=== PATIENT | female | born 1960 | race American Indian/Alaskan Native ===

== ENCOUNTER 2021-03-16 07:51 | Inpatient (IN) | payer MEDICAID ==
[2021-03-16] MEDS ORDERED: IBUPROFEN 800 MG TAB PO ONE ×2 (08:13→14:00)
--- NOTE | 2021-03-16 08:13 | Event Note ---
ED Screening Note Date of service: 03/16/21 ED Screening Note: PUI CO COUGH, WEAKNESS, FEVER/CHILLS LOW SATS on arrival O2 placed This initial assessment/diagnostic orders/clinical plan/treatment(s) is/are subject to change based on patients health status, clinical progression and re- assessment by fellow clinical providers in the ED. Further treatment and workup at subsequent clinical providers discretion. Patient/guardian urged not to elope from the ED as their condition may be serious if not clinically assessed and managed. Initial orders include: xray labs to main- charge nurse aware of sats 85 on arrival on room air
[2021-03-16 09:21] LABS: Basophils % (Auto) 0.4 % (0.0-1.8); Lymphocytes # (Auto) 1.6 K/mm3 (1.2-5.4); Lymphocytes % (Auto) 26.4 % (13.4-35.0); Mean Corpuscular HGB Conc 35 % (30-34); Mean Corpuscular Volume 89 fl (79-97); Monocytes # (Auto) 0.3 K/mm3 (0.0-0.8); Monocytes % (Auto) 5.9 % (0.0-7.3); Platelet Count 142 K/mm3 (140-440); Red Blood Count 4.83 M/mm3 (3.65-5.03)
--- NOTE | 2021-03-16 09:23 | XRay Report ---
CHEST 1 VIEW 03/16/2021 8:10 AM INDICATION / CLINICAL INFORMATION: Dyspnea. COMPARISON: None available. FINDINGS: SUPPORT DEVICES: None. HEART / MEDIASTINUM: The heart size and pulmonary vasculature are normal. LUNGS / PLEURA: There are patchy faint interstitial parenchymal opacities in the periphery of both damaso ngs. More focal ill-defined parenchymal opacity is present in the right mid-upper lung peripherally. No pleural effusion or adenopathy. No pneumothorax. ADDITIONAL FINDINGS: There are benign-appearing cystic changes in the greater tuberosity of the left humerus. IMPRESSION: Patchy peripheral parenchymal opacities in both lungs, right greater than left. The findi ngs are nonspecific, but likely inflammatory. Atypical causes of pneumonia, including viral pneumonia , should be considered. Short-term radiographic follow-up after appropriate therapy is recommended to document resolution. Signer Name: Ruben Blanca MD Signed: 03/16/2021 9:19 AM Workstation Name: [id number]
[2021-03-16 09:46] LABS: Alanine Aminotransferase 21 units/L (7-56); Albumin 3.5 g/dL (3.9-5); Blood Urea Nitrogen 9 mg/dL (7-17); Calcium 8.5 mg/dL (8.4-10.2); Hemolysis Index 14
[2021-03-16 09:49] LABS: BUN/Creatinine Ratio 15
[2021-03-16] MEDS ORDERED: AZITHROMYCIN/NS 500 MG/250 ML 500 MG/250 ML BAG IV ONE ×2 (10:30→14:00)
[2021-03-16] MEDS ORDERED: dexAMETHasone 4 MG/ML VIAL IV ONE ×2 (10:30→14:00)
[2021-03-16] MEDS ORDERED: cefTRIAXone/NS 1 GM/50 ML 1 GM/50 ML BAG IV ONE ×2 (10:30→14:00)
[2021-03-16] MEDS ORDERED: SODIUM CHLORIDE 0.9% 1000 ML 1,000 ML IV ONE (10:31)
--- NOTE | 2021-03-16 10:59 | Emergency Department Report ---
Blank Doc - Documentation Documentation: I went to examine the patient. Patient was called several times from the wait ing area. Patient is not answering.
--- NOTE | 2021-03-16 12:43 | Emergency Department Report ---
ED Shortness of Breath HPI - General Chief Complaint: Dyspnea/Respdistress Stated Complaint: SOB Time Seen by Provider: 03/16/21 10:31 Source: patient Mode of arrival: Wheelchair Limitations: No Limitations - History of Present Illness Initial Comments: Patient is 60 years old female with history of spondylosis. Patient presented to the ER complaining of difficulty in breathing, fever, chills, body ache, nausea and vomiting for the last 2 weeks. Patient also stated that she is having generalized weakness. Patient denied any chest pain. Patient stated that she did not receive her COVID-19 vaccine yet. Patient found to have an oxygen saturation of 87% on room air improved to 95% on 3 L. Complaint: shortness of breath, cough -: week(s) (2) Context: recent URI - Related Data Allergies Allergy/AdvReac Type Severity Reaction Status Date / Time No Known Allergies Allergy Unverified 03/16/21 07:57 ED Review of Systems ROS: Stated complaint: SOB Other details as noted in HPI Comment: All other systems reviewed and negative Constitutional: chills, fever, weakness ENT: congestion Cardiovascular: denies: chest pain, palpitations Gastrointestinal: nausea, vomiting. denies: abdominal pain, diarrhea, constipation, hematemesis Musculoskeletal: denies: back pain Neurological: weakness. denies: headache, numbness, paresthesias, confusion ED Past Medical Hx - Past Medical History Previous Medical History?: No - Surgical History Past Surgical History?: No ED Physical Exam - General Limitations: No Limitations General appearance: alert - ENT ENT exam: Present: mucous membranes dry - Neck Neck exam: Present: normal inspection, full ROM. Absent: tenderness, meningismus - Respiratory Respiratory exam: Present: normal lung sounds bilaterally. Absent: respiratory distress, wheezes, rales, rhonchi, accessory muscle use, decreased breath sounds, prolonged expiratory - Cardiovascular Cardiovascular Exam: Present: regular rate, normal rhythm, normal heart sounds - GI/Abdominal GI/Abdominal exam: Present: soft, normal bowel sounds. Absent: distended, tenderness, guarding, rebound, rigid, organomegaly, mass, bruit, pulsatile mass, hernia - Extremities Exam Extremities exam: Present: normal inspection, full ROM, normal capillary refill. Absent: tenderness, pedal edema, joint swelling, calf tenderness - Back Exam Back exam: Present: normal inspection, full ROM. Absent: CVA tenderness (R), CVA tenderness (L) - Neurological Exam Neurological exam: Present: alert, oriented X3, CN II-XII intact, normal gait, reflexes normal. Absent: motor sensory deficit - Psychiatric Psychiatric exam: Present: normal mood - Skin Skin exam: Present: warm, dry, intact, normal color ED Course Vital Signs 03/16/21 03/16/21 03/16/21 07:59 08:17 13:48 Temperature 100.2 F H Pulse Rate 88 Respiratory 18 18 Rate Blood Pressure 105/61 O2 Sat by Pulse 87 98 Oximetry ED Medical Decision Making - Lab Data Result diagrams: 03/16/21 08:53 03/16/21 08:53 - Radiology Data Radiology results: report reviewed - Medical Decision Making Patient is 60 years old female with history of spondylosis. Patient presented to the ER complaining of difficulty in breathing, fever, chills, body ache, nausea and vomiting for the last 2 weeks. Patient also stated that she is having generalized weakness. Patient denied any chest pain. Patient stated that she did not receive her COVID-19 vaccine yet. Patient found to have an oxygen saturation of 87% on room air improved to 95% on 3 L. Chest x-ray showed bilateral infiltrate concerning for pneumonia. Patient received Rocephin, Zithromax and Decadron. Patient also has dry mucous membrane patient received normal saline. COVID-19 test has been ordered. I discussed th e patient with Dr. Roth, he agreed to admit the patient to medical service for further management. Critical Care Time: Yes Critical care time in (mins) excluding proc time.: 30 Critical care attestation.: If time is entered above; I have spent that time in minutes in the direct care of this critically ill patient, excluding procedure time. ED Disposition Clinical Impression: Acute respiratory failure with hypoxia, Bilateral pneumonia, Suspected COVID-19 virus infection Disposition: ADMITTED INPATIENT Is pt being admited?: Yes Condition: Stable
[2021-03-16] MEDS ORDERED: ACETAMINOPHEN 500 MG TAB PO ONE (12:44)
[2021-03-16] MEDS ORDERED: HYDROmorphone 1 MG/1 ML INJ IV PRN (12:46)
[2021-03-16] MEDS ORDERED: ACETAMINOPHEN 325 MG TAB PO PRN (12:46)
[2021-03-16] MEDS ORDERED: ONDANSETRON 4 MG/2 ML INJ IV PRN (12:46)
--- NOTE | 2021-03-16 12:46 | History and Physical Report ---
History of Present Illness Chief complaint: Its hard to breathe History of present illness: 60 YO Female with Spondylosis presents to ED for evaluation. Pt reports "I feel short of breath". Patient states that she has experienced shortness of breath, muscle aches, subjective fever, fatigue, decreased exercise tolerance, lethargy, nausea, multiple episodes of vomiting over the past 2 weeks with persistent and worsening symptoms over the same timeframe. Patient transported to [facility] via private vehicle for further care and evaluation of the aforementioned symptoms. The patient was seen and evaluated in the emergency department. All lab and imaging studies reviewed. Patient was found to have a pulse oximetry of 84% with exertion which is consistent with acute hypoxemic respiratory failure. Chest x-ray revealed bilateral pneumonia complicated by systemic inflammatory response syndrome. Patient treated with submental oxygen in the emergency department with mild improvement in symptoms. Patient admitted to medical floor and initiated on pneumonia protocol as well as coronavirus protocol. Patient denies chills, chest pain, palpitations, skin rash, or known ill contacts. Patient has not received her COVID-19 vaccine. No prior admission for review. No medication listed at time of admission for reconciliation. Advanced care planning conducted in ED. Past History Past Medical History: other (See HPI) Past Surgical History: No surgical history, Other (Reviewed) Social history: single. denies: smoking, alcohol abuse, prescription drug abuse Family history: hypertension Medications and Allergies Allergies Allergy/AdvReac Type Severity Reaction Status Date / Time No Known Allergies Allergy Unverified 03/16/21 07:57 Review of Systems Constitutional: fever, fatigue, weakness, malaise Ears, nose, mouth and throat: no ear pain, no ear discharge, no tinnitis, no d ecreased hearing, no nose pain, no nasal congestion Breasts: no change in shape, no swelling, no mass Cardiovascular: no chest pain, no orthopnea, no rapid/irregular heart beat, no syncope Respiratory: cough, shortness of breath, dyspnea on exertion Gastrointestinal: nausea, vomiting, no abdominal pain, no diarrhea Genitourinary Female: no pelvic pain, no flank pain, no dysuria, no urinary frequency, no urgency Rectal: no pain, no incontinence, no bleeding Musculoskeletal: no neck stiffness, no neck pain, no shooting arm pain, no arm numbness/tingling, no low back pain, no leg numbness/tingling Integumentary: no rash, no pruritis, no redness, no sores, no wounds Neurological: no head injury, no paralysis, no weakness, no numbness, no syncope, no ataxia Psychiatric: no anxiety, no memory loss, no change in sleep habits, no sleep disturbances, no hypersomnia Endocrine: no cold intolerance, no polyphagia, no excessive thirst, no polydipsia, no polyuria Hematologic/Lymphatic: no easy bruising, no easy bleeding, no lymphedema Allergic/Immunologic: no allergic rhinitis, no wheezing, no persistent infections Exam - Constitutional Vitals: Temp Pulse Resp BP Pulse Ox 100.2 F H 88 18 105/61 98 03/16/21 07:59 03/16/21 07:59 03/16/21 07:59 03/16/21 07:59 03/16/21 08:17 General appearance: Present: mild distress - EENT Eyes: Present: PERRL ENT: hearing intact, clear oral mucosa - Neck Neck: Present: supple, normal ROM - Respiratory Respiratory effort: labored, accessory muscle use Respiratory: bilateral: diminished, rhonchi - Cardiovascular Heart Sounds: Present: S1 & S2. Absent: rub, click - Extremities Extremities: pulses symmetrical, No edema Peripheral Pulses: within normal limits - Abdominal General gastrointestinal: Present: soft, non-tender, non-distended, normal bowel sounds Female genitourinary: Present: normal - Integumentary Integumentary: Present: clear, warm, dry - Musculoskeletal Musculoskeletal: gait normal, strength equal bilaterally - Psychiatric Psychiatric: appropriate mood/affect, intact judgment & insight - Neurologic Neurologic: CNII-XII intact, moves all extremities HEART Score - HEART Score Troponin: Troponin T < 0.010 ng/mL (0.00-0.029) 03/16/21 08:53 Results - Labs CBC & Chem 7: 03/16/21 08:53 03/16/21 08:53 Labs: Abnormal lab results 03/16/21 03/16/21 Range/Units 08:53 08:53 Hgb 15.0 H (10.1-14.3) gm/dl Hct 43.0 H (30.3-42.9) % MCHC 35 H (30-34) % Sodium 136 L (137-145) mmol/L Potassium 3.3 L (3.6-5.0) mmol/L Albumin 3.5 L (3.9-5) g/dL Assessment and Plan - Patient Problems (1) Acute respiratory failure with hypoxia Current Visit: Yes Status: Acute Plan to address problem: Chest x-ray, supplemental oxygen, pulse oximetry, nebulizer therapy, will initiate therapy with high flow supplemental oxygen if patient is able to maintain pulse oximetry with supplemental oxygen via nasal cannula. (2) Bilateral pneumonia Current Visit: Yes Status: Acute Plan to address problem: Pneumonia protocol: Chest x-ray, CBC, CMP, IV antibiotic therapy, supplemental oxygen, pulse oximetry, blood culture. (3) Suspected COVID-19 virus infection Current Visit: Yes Status: Acute Plan to address problem: Coronavirus protocol: IV antibiotic therapy, IV steroid therapy, supplemental oxygen, pulse oximetry, nebulizer therapy, vitamin C therapy, vitamin D therapy, zinc therapy, prophylactic anticoagulation (4) DVT prophylaxis Current Visit: Yes Status: Acute Plan to address problem: SCD to bilateral lower extremities while in bed, prophylactic anticoagulation (5) Advance care planning Current Visit: Yes Status: Acute Plan to address problem: Disease education conducted, care plan discussed, diagnosis discussed, prognosis discussed, patient acknowledges understanding agree with care plan, +30 minutes.
[2021-03-16] MEDS ORDERED: SODIUM CHLORIDE 0.9% 1000 ML 1,000 ML ONE (13:53)
[2021-03-16] MEDS: methylPREDNISolone Sod Succinate 40 MG/1 ML INJ IV SCH ×2 (16:31→23:02)
[2021-03-16 20:31] LABS: Bilirubin,Urine NEG (Negative); Blood,Urine MOD (Negative); Color,Urine Yellow (Yellow); Mucus,Urine FEW /HPF
[2021-03-16] MEDS: oxyCODONE /ACETAMINOPHEN 5-325MG TAB PO PRN (23:02)
[2021-03-16] MEDS: HEPARIN 5,000 UNIT/1 ML VIAL SUB-Q SCH (23:02)
[2021-03-16] MEDS: ASCORBIC ACID 500 MG TAB PO SCH (23:02)
[2021-03-16] MEDS: ZINC SULFATE 220 MG CAP PO SCH (23:02)
[2021-03-17 04:40] LABS: Basophils % (Auto) 0.2 % (0.0-1.8); Hematocrit 41.7 % (30.3-42.9); Hemoglobin 14.3 gm/dl (10.1-14.3); Lymphocytes # (Auto) 0.9 K/mm3 (1.2-5.4); Lymphocytes % (Auto) 26.2 % (13.4-35.0); Mean Corpuscular HGB Conc 34 % (30-34); Mean Corpuscular Volume 90 fl (79-97); Monocytes # (Auto) 0.2 K/mm3 (0.0-0.8); Monocytes % (Auto) 4.3 % (0.0-7.3); Platelet Count 146 K/mm3 (140-440); Red Blood Count 4.62 M/mm3 (3.65-5.03); Red Cell Distribution Width 14.9 % (13.2-15.2)
[2021-03-17 05:02] LABS: Alanine Aminotransferase 20 units/L (7-56); Albumin 3.2 g/dL (3.9-5); Blood Urea Nitrogen 9 mg/dL (7-17); Calcium 8.3 mg/dL (8.4-10.2); Hemolysis Index 3
[2021-03-17 05:16] LABS: BUN/Creatinine Ratio 18
[2021-03-17] MEDS: methylPREDNISolone Sod Succinate 40 MG/1 ML INJ IV SCH ×3 (05:55→21:27)
--- NOTE | 2021-03-17 07:47 | Progress Note ---
Assessment and Plan - Patient Problems (1) Acute respiratory failure with hypoxia Current Visit: Yes Status: Acute Plan to address problem: Secondary to COVID-19 pneumonia. Resolving. (2) Advance care planning Current Visit: Yes Status: Acute (3) Bilateral pneumonia Current Visit: Yes Status: Acute Plan to address problem: Secondary to COVID-19. Patient receiving dexamethasone. O2 at 3 L. Nebulizers. As needed Azithromycin Rocephin. (4) DVT prophylaxis Current Visit: Yes Status: Acute (5) Suspected COVID-19 virus infection Current Visit: Yes Status: Acute Plan to address problem: Patient has COVID-19 pneumonia. Most likely not a candidate for remdesivir patient no longer hypoxic. Most likely can go home and quarantine. Subjective Date of service: 03/17/21 Principal diagnosis: Acute hypoxemic respiratory failure Interval history: 60-year-old male with past medical history of spondylosis presents with chief co mplaint of shortness of breath, dyspnea on exertion, arthralgias myalgias and low-grade fever. In ED patient found to be hypoxemic with O2 sats of 84% chest x-ray revealed bilateral hilar patchy infiltrates. Patient was admitted for acute respiratory failure secondary to pneumonia. Patient is also a person of interest for COVID-19 pneumonia. At present patient looks good. Patient is tolerating 3 L of O2 well. Recently wean from 4 L to 3 L. Anticipate discharge 1 to 2 days. Patient positive for COVID-19 however no acute distress. Objective - Constitutional Vitals: Vital Signs - 12hr 03/16/21 03/16/21 03/16/21 19:46 20:00 20:16 Pulse Rate 55 L 71 69 Respiratory 20 21 18 Rate Blood Pressure 99/45 120/62 112/69 O2 Sat by Pulse 97 100 Oximetry 03/16/21 03/16/21 20:37 20:45 Pulse Rate 61 Respiratory 22 Rate Blood Pressure 112/69 112/69 O2 Sat by Pulse 99 Oximetry General appearance: Present: no acute distress, well-nourished - EENT Eyes: PERRL, EOM intact ENT: hearing intact, clear oral mucosa Ears: bilateral: normal - Neck Neck: supple, normal ROM - Respiratory Respiratory effort: normal Respiratory: bilateral: CTA - Breasts Breasts: normal - Cardiovascular Rhythm: regular Heart Sounds: Present: S1 & S2. Absent: gallop, rub Extremities: pulses intact, No edema, normal color, Full ROM - Gastrointestinal General gastrointestinal: Present: soft, non-tender, non-distended, normal bowel sounds - Genitourinary Female genitourinary: normal - Integumentary Integumentary: clear, warm, dry - Musculoskeletal Musculoskeletal: 1, strength equal bilaterally - Neurologic Neurologic: moves all extremities - Psychiatric Psychiatric: memory intact, appropriate mood/affect, intact judgment & insight - Labs CBC & Chem 7: 03/17/21 03:11 03/17/21 03:11 Labs: Abnormal lab results 03/16/21 03/16/21 03/17/21 Range/Units 08:53 08:53 03:11 WBC 3.5 L (4.5-11.0) K/mm3 Hgb 15.0 H (10.1-14.3) gm/dl Hct 43.0 H (30.3-42.9) % MCHC 35 H (30-34) % Lymph # (Auto) 0.9 L (1.2-5.4) K/mm3 Sodium 136 L (137-145) mmol/L Potassium 3.3 L (3.6-5.0) mmol/L Creatinine (0.6-1.2) mg/dL Glucose (65-100) mg/dL Calcium (8.4-10.2) mg/dL Albumin 3.5 L (3.9-5) g/dL 03/17/21 Range/Units 03:11 WBC (4.5-11.0) K/mm3 Hgb (10.1-14.3) gm/dl Hct (30.3-42.9) % MCHC (30-34) % Lymph # (Auto) (1.2-5.4) K/mm3 Sodium (137-145) mmol/L Potassium 3.2 L (3.6-5.0) mmol/L Creatinine 0.5 L (0.6-1.2) mg/dL Glucose 133 H (65-100) mg/dL Calcium 8.3 L (8.4-10.2) mg/dL Albumin 3.2 L (3.9-5) g/dL HEART Score - HEART Score Troponin: Troponin T < 0.010 ng/mL (0.00-0.029) 03/16/21 08:53
[2021-03-17] MEDS: oxyCODONE /ACETAMINOPHEN 5-325MG TAB PO PRN ×2 (09:57→23:02)
[2021-03-17] MEDS: POTASSIUM CHLORIDE ER 10 MEQ TAB PO SCH (09:58)
[2021-03-17] MEDS: ASCORBIC ACID 500 MG TAB PO SCH ×2 (09:58→21:27)
[2021-03-17] MEDS: ZINC SULFATE 220 MG CAP PO SCH ×2 (09:58→21:27)
[2021-03-17] MEDS: CHOLECALCIFEROL (VIT D3) 1000 UNIT (25 mcg) TAB PO SCH (09:58)
[2021-03-17] MEDS: cefTRIAXone/NS 2 GM/100 ML 2 GM/100 ML BAG IV SCH (09:59)
[2021-03-17] MEDS: HEPARIN 5,000 UNIT/1 ML VIAL SUB-Q SCH ×2 (09:59→21:28)
[2021-03-17] MEDS ORDERED: CHOLECALCIFEROL (VIT D3) 400 UNIT TAB PO SCH (10:00)
[2021-03-17] MEDS: AZITHROMYCIN/NS 500 MG/250 ML 500 MG/250 ML BAG IV SCH (11:54)
[2021-03-18 04:52] VITALS: BP 102/66
[2021-03-18] MEDS: methylPREDNISolone Sod Succinate 40 MG/1 ML INJ IV SCH (06:31)
[2021-03-18] MEDS: ZINC SULFATE 220 MG CAP PO SCH (10:46)
[2021-03-18] MEDS: POTASSIUM CHLORIDE ER 10 MEQ TAB PO SCH (10:46)
[2021-03-18] MEDS: cefTRIAXone/NS 2 GM/100 ML 2 GM/100 ML BAG IV SCH (10:46)
[2021-03-18] MEDS: HEPARIN 5,000 UNIT/1 ML VIAL SUB-Q SCH (10:47)
[2021-03-18] MEDS: ASCORBIC ACID 500 MG TAB PO SCH (10:47)
[2021-03-18] MEDS: CHOLECALCIFEROL (VIT D3) 1000 UNIT (25 mcg) TAB PO SCH (10:47)
[2021-03-18] MEDS: AZITHROMYCIN/NS 500 MG/250 ML 500 MG/250 ML BAG IV SCH (10:48)
[2021-03-18] MEDS ORDERED: DEXAMETHASONE 4 MG TAB PO ONE (10:52)
--- NOTE | 2021-03-18 10:54 | Discharge Summary ---
Providers - Providers Date of Admission: 03/16/21 12:46 Date of discharge: 03/18/21 Attending physician: ARANZA JORDAN [facility] Condition: Stable Disposition: 01 HOME / SELF CARE / HOMELESS Final Discharge Diagnosis (Prints w/discharge instructions): COVID-19 pneumonia - Discharge Diagnoses (1) Acute respiratory failure with hypoxia Status: Acute Comment: Patient presented with acute respiratory failure seco ndary to COVID-19 pneumonia. Patient defervesced well was treated for secondary causes of pneumonia with empiric antibiotics. Patient responded to dexamethasone. Did not require remdesivir because patient was saturating well. Patient tolerated walk test saturations greater 96% room air and did not require oxygen. Will be discharge stable condition. (2) Advance care planning Status: Acute Comment: Patient stable to discharge home with quarantine for an additional 7 days. (3) Bilateral pneumonia Status: Acute Comment: Secondary to COVID-19. Defervesced well. Not requiring O2. Will discharge home with vitamins C, zinc, D. Azithromycin and dexamethasone. (4) DVT prophylaxis Status: Acute (5) Suspected COVID-19 virus infection Status: Acute Core Measure Documentation - Palliative Care Palliative Care/ Comfort Measures: Not Applicable - Core Measures Any of the following diagnoses?: none Exam - Constitutional Vitals: Temp Pulse Resp BP Pulse Ox 98.1 F 59 L 16 102/66 92 03/18/21 04:50 03/18/21 04:50 03/18/21 04:50 03/18/21 04:50 03/18/21 09:13 General appearance: Present: no acute distress, well-nourished - EENT Eyes: Present: PERRL ENT: hearing intact, clear oral mucosa - Neck Neck: Present: supple, normal ROM - Respiratory Respiratory effort: normal Respiratory: bilateral: CTA - Cardiovascular Heart Sounds: Present: S1 & S2. Absent: rub, click - Extremities Extremities: pulses symmetrical, No edema Peripheral Pulses: within normal limits - Abdominal General gastrointestinal: Present: soft, non-tender, non-distended, normal bowel sounds Female genitourinary: Present: normal - Integumentary Integumentary: Present: clear, warm, dry - Musculoskeletal Musculoskeletal: gait normal, strength equal bilaterally - Psychiatric Psychiatric: appropriate mood/affect, intact judgment & insight - Neurologic Neurologic: CNII-XII intact, moves all extremities Plan Activity: fall precautions Diet: regular Follow up with: BAILEY NDIAYE MD [Primary Care Provider] - 3-5 Days Prescriptions: Ascorbic Acid [Vitamin C] 500 mg PO BID #60 tablet Cholecalciferol Vit D3 [Vitamin D3 1,000 UNIT TAB] 1,000 unit PO DAILY #7 tablet Zinc Sulfate 220 mg PO BID #30 capsule
[2021-03-19] MEDS ORDERED: AZITHROMYCIN 250 MG TAB PO SCH (10:00)
== END 2021-03-18 17:47 | disposition home or self-care (01) | DRG 177 ==
LOC: ED 07:51 → 3A 12:46
PROVIDERS: ADMIT Internal Medicine; ATTEND Internal Medicine
DX: U07.1 COVID-19 (principal); J96.01 Acute respiratory failure with hypoxia; J12.82 Pneumonia due to coronavirus disease 2019; Z82.49 Family history of ischemic heart disease and other diseases of the circulatory system
CPT/HCPCS: 36415; 71045; 80053; 81001; 82140; 84484; 85025; 93005; 94760; G0378; J0456; J0696; J1100; J1644; J2405; J2920; J7030; U0003